=== PATIENT | male | born 1965 | race Caucasian/White ===

== ENCOUNTER → 2022-09-01 | Outpatient (CLI) | payer OTHER | END | disposition home or self-care (01) | LOC: LAB 07:30 → LAB SHORT 07:30 | DX: R10.9 Unspecified abdominal pain (principal) | CPT/HCPCS: 87177; 87209; 87338 ==

== ENCOUNTER 2025-03-09 15:59 | Inpatient (IN) | payer OTHER ==
[2025-03-09] VITALS (7 sets, daily range): BP systolic 122–140; BP diastolic 80–118
[~2025-03-09] VITALS: Ht 190.5 cm; Wt 96.8 kg
[2025-03-09] MEDS ORDERED: Heparin Sodium 1000 Units/ML 10ML MDV ONE ×2 (16:04→17:00)
[2025-03-09] MEDS ORDERED: Verapamil HCL 2.5 MG/ML 2ML Injection ONE (16:04)
[2025-03-09] MEDS ORDERED: NS 250 ML IV ONE (16:05)
[2025-03-09] MEDS ORDERED: Nitroglycerin 2 MG/20 ML BTL ONE (16:05)
[2025-03-09] MEDS ORDERED: NS 1,000 ML IV ONE ×2 (16:05→16:09)
[2025-03-09] MEDS ORDERED: Atropine Sulfate 0.1 MG/ML 10ML SYR ONE ×2 (16:09→17:21)
[2025-03-09] MEDS ORDERED: Midazolam HCl 1MG / ML 2ML Vial ONE (16:09)
[2025-03-09] MEDS ORDERED: Phenylephrine HCl 100 MCG/ML-NS 10MLSYR (1MG/10ML) ONE (16:09)
[2025-03-09] MEDS ORDERED: FentaNYL Citrate 50 MCG/ML 2 ML Injection ONE (16:09)
[2025-03-09] MEDS ORDERED: Tirofiban HCL Monohydrate 3.75 MG/15 ML Vial ONE (16:10)
[2025-03-09] MEDS ORDERED: Heparin Sodium,Porcine 5,000 UNIT/0.5 ML SDV SC ONE (16:58)
[2025-03-09] MEDS ORDERED: Aspirin 81 MG Chew PO ONE (16:58)
[2025-03-09] MEDS ORDERED: Clopidogrel Bisulfate 300 MG TABLET ONE (17:10)
[2025-03-09] MEDS ORDERED: Ipratropium/Albuterol SulF 2.5-0.5MG/3 ML Amp INH SCH (17:50)
[2025-03-09] MEDS ORDERED: MONT10T PO (17:51)
[2025-03-09] MEDS ORDERED: OMEP20ER PO (17:51)
[2025-03-09] MEDS ORDERED: VITAMIN D5000 UNIT PO (17:52)
[2025-03-09] MEDS ORDERED: Norco 7.5-3251 EACH PO (17:52)
[2025-03-09] MEDS ORDERED: Albuterol 2.5 MG/3 ML VIAL INH PRN (17:55)
[2025-03-09] MEDS ORDERED: NS 1,000 ML IV SCH (17:55)
[2025-03-09] MEDS ORDERED: HYDROcodone 5-APAP 325 TAB PO PRN (18:00)
[2025-03-09] MEDS ORDERED: FentaNYL Citrate 50 MCG/ML 2 ML Injection IV PRN (18:00)
[2025-03-09 18:15] LABS: BASOPHILS ABSOLUTE AUTO 0.09 K/mm3 (0.00-0.23); BASOPHILS PERCENT AUTO 0 % (0-2); EOSINOPHILS ABSOLUTE AUTO 0.05 K/mm3 (0.00-0.68); EOSINOPHILS PERCENT AUTO 0 % (0-6); Hematocrit 52.8 % (37.0-53.0); Hemoglobin 18.1 g/dL (13.5-17.5); IMMATURE GRAN ABSOLUTE AUTO 0.19 K/mm3 (0.00-0.10); IMMATURE GRAN PERCENT AUTO 1 % (0-1); LYMPHOCYTES ABSOLUTE AUTO 1.02 K/mm3 (0.84-5.20); LYMPHOCYTES PERCENT AUTO 4 % (21-46); MONOCYTES ABSOLUTE AUTO 1.05 K/mm3 (0.16-1.47); MONOCYTES PERCENT AUTO 4 % (4-13); Mean Corpuscular HGB 31.6 pg (26.0-34.0); Mean Corpuscular HGB Conc 34.3 g/dL (31.5-36.5); Mean Corpuscular Volume 92 fL (80-100); Mean Platelet Volume 10.5 fL (9.1-12.4); NEUTROPHILS ABSOLUTE AUTO 21.67 K/mm3 (1.96-9.15); NEUTROPHILS PERCENT AUTO 90 % (41-73); Platelet Count 237 K/mm3 (150-400); RDW Coefficient Variation 13.3 % (11.7-14.2); RDW Standard Deviation 45.7 fL (35.1-46.3); Red Blood Cell Count 5.72 M/mm3 (4.30-5.90); White Blood Cell Count 24.07 K/mm3 (4.00-11.30)
[2025-03-09] MEDS ORDERED: Amiodarone HCl 50 MG / ML 3 ML Amp IV ONE (18:21)
--- NOTE | 2025-03-09 18:35 | NUR ---
DAY SHIFT SUMMARY PT ARRIVED TO ICU FROM [facility] ALERT AND ORIENTED COMMUNICATING APPROPRIATELY W STAFF. PT REPORTING CONSTANT ACHING IN HIS RCW THAT HE REPORTS IS IMPROVING. PT'S MONITOR SHOWING SR 70'S W OCCASIONAL PVC. PT HAS AMIODARONE GTT AND NS INFUSING PER ORDER. PT'S BP STABLE. PT ARRIVED ON NON-REBREATHER MASK BUT WAS TRANSITIONED TO 12L HI MIRANDA NC. PT'S FAMILY AT BEDSIDE. TR BAND IN PLACE APPEARING C/D/I, WILL BEGIN DEFLATION APPROX 1914. WILL REPORT TO ONCOMING RN.
[2025-03-09 18:45] LABS: Magnesium, Blood 1.9 mg/dL (1.6-2.4)
[2025-03-09 18:51] LABS: Albumin, Blood 3.7 g/dL (3.4-5.0); Albumin/Globulin Ratio 1.3 (0.8-1.8); Bilirubin, Total 0.5 mg/dL (0.1-1.0); Bun/Creatinine Ratio 9.3 (12.0-20.0); Calcium, Blood 8.1 mg/dL (8.5-10.1); Creatinine, Blood 1.07 mg/dL (0.60-1.20); Globulin, Blood 2.8 g/dL (2.2-4.0); Potassium, Blood 3.6 mmol/L (3.5-5.5); Thyroid Stimulating Hormone 1.72 uIU/mL (0.360-4.800); Total Protein, Blood 6.5 g/dL (6.4-8.2)
[2025-03-09 19:08] LABS: Source, Urine Clean Catch
[2025-03-09 19:11] LABS: Appearance, Urine Clear (Clear); Bilirubin, Urine Neg (Neg); Blood, Urine 5+ (Neg); Color, Urine Yellow (P-Yellow); Glucose Qualitative, Urine 1+ (Neg); Ketones, Urine 2+ (Neg); Leukocyte Esterase, Urine Neg (Neg); Nitrite, Urine Neg (Neg); Protein, Urine 2+ (Neg); Specific Gravity, Urine 1.015 (1.003-1.022); Urobilinogen, Urine NORM (Normal)
[2025-03-09 19:23] LABS: Bacteria Rare /hpf; Red Blood Cells, Urine 0-2 /hpf (0-2); Squamous Epithelial Cells Rare /hpf (Few); White Blood Cells, Urine 0-2 /hpf (0-5)
[2025-03-09] MEDS ORDERED: Docusate Sodium/Senna 1 Tab PO SCH (21:00)
[2025-03-09] MEDS ORDERED: Montelukast Sodium 10 MG Tab PO SCH (21:00)
[2025-03-09] MEDS ORDERED: Metoprolol Tartrate 25 MG Tab PO SCH (21:00)
[2025-03-09] MEDS ORDERED: Atorvastatin 40 MG Tab PO SCH (21:00)
--- NOTE | 2025-03-09 21:23 | NUR ---
NURSING NOTE: THIS RN WENT TO GIVE PT NIGHT TIME MEDS TO WHICH PT REFUSED. HE SAID THAT HE TOOK THEM THIS MORNING AND DECLINES TO TAKE ADDITIONAL DOSE. HE ALSO SAID THAT HE DOES NOT KNOW WHAT ATORVASTATIN IS AND WOULD NOT LIKE TO TAKE IT AT THIS TIME. THIS RN EDUCATED PT ON MEDICATION AND PT STILL DECLINED.
[2025-03-10] VITALS (20 sets, daily range): BP systolic 91–168; BP diastolic 66–111
[2025-03-10 03:40] LABS: Anion Gap 8 mmol/L (3-11); Blood Urea Nitrogen 11 mg/dL (8-24); Bun/Creatinine Ratio 10.2 (12.0-20.0); CHOL/HDL RATIO 3.8; CO2, Blood 26 mmol/L (21-32); Calcium, Blood 8.1 mg/dL (8.5-10.1); Chloride, Blood 102 mmol/L (98-108); Cholesterol 212 mg/dL (50-200); Creatinine, Blood 1.08 mg/dL (0.60-1.20); Glomerular Filtration Rate 78 (60-); Glucose, Blood 138 mg/dL (70-99); HDL Cholesterol 56 mg/dL (>39); LDL/HDL RATIO 2.1; Low Density Lipoprotein Chol 120 mg/dL (0-110); Potassium, Blood 3.9 mmol/L (3.5-5.5); Sodium, Blood 132 mmol/L (136-145); Triglycerides 179 mg/dL (30-160); Very Low Density Lipoprot Chol 35 mg/dL (6-32)
[2025-03-10] MEDS ORDERED: Pantoprazole Sodium 40 MG Tab PO SCH (06:00)
[2025-03-10] MEDS ORDERED: Omeprazole 20 MG CapCR PO SCH (06:00)
--- NOTE | 2025-03-10 07:08 | NUR ---
END OF SHIFT: THIS PT HAS SLEPT MOST OF THE NIGHT. HE DID HAVE ABOUT 3 RUNS OF VTACH THAT WERE NOT SYMPTOMATIC THAT LASTED ABOUT 10-15 BEATS EACH. HE HAS BEEN ON 12L OF O2 SATTING 94% AND BETTER. HEART RATE HAS BEEN NORMAL SINUS RHYTHM WITH PVCs. AMIO GTT RUNNING. BLOOD PRESSURES HAVE BEEN WNL. NO OTHER ACUTE EVENTS OVERNIGHT.
[2025-03-10 08:28] LABS: BASOPHILS ABSOLUTE AUTO 0.03 K/mm3 (0.00-0.23); BASOPHILS PERCENT AUTO 0 % (0-2); EOSINOPHILS ABSOLUTE AUTO 0.02 K/mm3 (0.00-0.68); EOSINOPHILS PERCENT AUTO 0 % (0-6); Hematocrit 49.1 % (37.0-53.0); Hemoglobin 17.1 g/dL (13.5-17.5); IMMATURE GRAN ABSOLUTE AUTO 0.03 K/mm3 (0.00-0.10); IMMATURE GRAN PERCENT AUTO 0 % (0-1); LYMPHOCYTES ABSOLUTE AUTO 1.38 K/mm3 (0.84-5.20); LYMPHOCYTES PERCENT AUTO 12 % (21-46); MONOCYTES ABSOLUTE AUTO 0.47 K/mm3 (0.16-1.47); MONOCYTES PERCENT AUTO 4 % (4-13); Mean Corpuscular HGB 31.6 pg (26.0-34.0); Mean Corpuscular HGB Conc 34.8 g/dL (31.5-36.5); Mean Corpuscular Volume 91 fL (80-100); Mean Platelet Volume 10.4 fL (9.1-12.4); NEUTROPHILS PERCENT AUTO 84 % (41-73); Platelet Count 198 K/mm3 (150-400); RDW Coefficient Variation 13.4 % (11.7-14.2); RDW Standard Deviation 45.2 fL (35.1-46.3); Red Blood Cell Count 5.41 M/mm3 (4.30-5.90); White Blood Cell Count 11.83 K/mm3 (4.00-11.30)
[2025-03-10] MEDS ORDERED: Enoxaparin 40 MG/0.4 ML SYR SC SCH (09:00)
[2025-03-10] MEDS ORDERED: Lisinopril 5 MG Tab PO SCH (09:00)
[2025-03-10] MEDS ORDERED: Aspirin 81 MG Chew PO SCH (09:00)
[2025-03-10] MEDS ORDERED: Clopidogrel Bisulfate 75 MG Tab PO SCH (09:00)
[2025-03-10] MEDS ORDERED: Enoxaparin 30 MG/0.3 ML SYR SC SCH (09:00)
--- NOTE | 2025-03-10 10:07 | NUR ---
CARE ASSUMPTION NOTE AFTER REPORT AND UPON ENTERING THE ROOM PATIENT WAS ALERT AND ORIENTED TALKING TO CHARGE NURSE. PT APPEARED TO BE IN NO IMMEDIATE DISTRESS AND VOICED HE WAS "FEELING BETTER". PT'S RIGHT IV SITE WAS LEAKING, CHARGE NURSE REMOVED IV SITE AND I (SISSY, SUSTAINMENT LOGISTICS ANALYST) INSERTED 20G IV IN RIGHT FOREARM TO CONTINUE AMIODARONE DRIP. CHARGE NURSE, WEB COORDINATOR, AND MYSELF ROLLED PATIENT TO REMOVE LINENS THAT WERE WET FOR IV LEAK. PT TOLERATED MOVEMENT WELL AND WAS BOOSTED IN BED WITH HOB ELEVATED. PT COUGHING UP THICK, RED/CLEAR SECRETIONS AT THE TIME WITH A PILLOW PLACED AT CHEST TO HOLD ONTO WHILE COUGHING. MORNING MEDICATIONS GIVEN WITH NO PROBLEMS. LATER IN THE MORNING DR CAMPOS PRESENT AT BEDSIDE WITH PT'S IN THE ROOM. DR CAMPOS WENT OVER THE PLAN OF CARE WITH PT AND FOR PLANS TO STAY IN ICU ANOTHER DAY TO MONITOR. PT AND UNDERSTOOD PLANS FOR CARE.
[2025-03-10] MEDS ORDERED: Furosemide 20 MG Tab PO PRN (12:45)
--- NOTE | 2025-03-10 17:29 | NUR ---
SHIFT SUMMARY NEURO: PT HAS BEEN ALERT AND ORIENTED X4 THROUGHOUT THE SHIFT. HE IS CALM AND COOPERATIVE WITH CARE. HE ANSWERS QUESTIONS APPROPRIATELY, TAKES MEDICATIONS WELL, AND WILL LET HIS NEEDS BE KNOWN. CARDIOVASCULAR: PT ON CONTIOUS TELE AND HAS MAINTAINED SINUS RHYTHM WITH HR BETWEEN 80'S-90'S, PT HAS HAD SEVERAL EPISODES OF VTACH (5-7 BEATS) WITH NO SYMPTOMS DURING EPISODE. PT HAS NOT COMPLAINED OF CHEST PAIN OR PRESSURE THIS SHIFT. RESPIRATORY: PT'S O2 HAS MAINTAINED BETWEEN 88-96% ON 1-4L VIA NC. PT O2 SATS DECREASE <90% BUT >87% DURING AMBULATION TO THE RESTROOM BUT RETURNS BACK WNL AT REST. LUNG SOUNDS HAVE REMAINED THE SAME THROUGHOUT SHIFT. PT CONTINOUS TO PRODUCE THICK RED/CLEAR SPUTUM. GI: PT HAD ONE BOWEL MOVEMENT DURING SHIFT, WITH NO COMPLAINTS OF NAUSEA,VOMITING,DIARRHEA, OR CONSTIPATION. : PT CONTINOUS TO USE URINAL WITH FREQUENT URINATION THROUGHOUT SHIFT. URINE WAS A DARKER YELLOW COLOR THIS MORNING BUT HAS CLEARED TO A YELLOW/CLEAR COLOR TOWARDS THE END OF SHIFT. NO COMPLAINTS OF PAIN OR BURINING WHILE URINATING. SKIN: PT HAS A RED/SMITH HUE THAT APPEARS NORMAL TO BASELINE SKIN TONE. PT'S PCI SITE ON RIGHT WRIST APPEARS WNL WITH NO SIGNS ON INFECTION. PSYCHOSOCIAL: PT'S HAS BEEN AT BEDSIDE THROUGHOUT SHIFT WITH FRIENDS OF THE FAMILY VISITING THROUGHOUT THE DAY. PT HAS TALKED TO OTHER FAMILY MEMBERS ON THE PHONE WELL.
[2025-03-11] VITALS (10 sets, daily range): BP systolic 87–109; BP diastolic 62–72
[2025-03-11 03:29] LABS: BASOPHILS ABSOLUTE AUTO 0.05 K/mm3 (0.00-0.23); BASOPHILS PERCENT AUTO 0 % (0-2); EOSINOPHILS ABSOLUTE AUTO 0.07 K/mm3 (0.00-0.68); EOSINOPHILS PERCENT AUTO 1 % (0-6); Hematocrit 45.3 % (37.0-53.0); Hemoglobin 15.3 g/dL (13.5-17.5); IMMATURE GRAN ABSOLUTE AUTO 0.04 K/mm3 (0.00-0.10); IMMATURE GRAN PERCENT AUTO 0 % (0-1); LYMPHOCYTES ABSOLUTE AUTO 1.73 K/mm3 (0.84-5.20); LYMPHOCYTES PERCENT AUTO 15 % (21-46); MONOCYTES PERCENT AUTO 8 % (4-13); Mean Corpuscular HGB 30.9 pg (26.0-34.0); Mean Corpuscular HGB Conc 33.8 g/dL (31.5-36.5); Mean Corpuscular Volume 92 fL (80-100); Mean Platelet Volume 10.1 fL (9.1-12.4); NEUTROPHILS ABSOLUTE AUTO 8.68 K/mm3 (1.96-9.15); NEUTROPHILS PERCENT AUTO 76 % (41-73); Platelet Count 183 K/mm3 (150-400); RDW Coefficient Variation 13.4 % (11.7-14.2); RDW Standard Deviation 45.9 fL (35.1-46.3); Red Blood Cell Count 4.95 M/mm3 (4.30-5.90); White Blood Cell Count 11.47 K/mm3 (4.00-11.30)
--- NOTE | 2025-03-11 05:45 | NUR ---
SHIFT SUMMERY PT HAS BEEN ALERT AND ORIENTED X4, NIRALI [place]ES. PT ON 2L NC W/OXYGEN SAT >90%. NO COMPLAINTS OF CHEST PAIN/PRESSURE. HAS STAYED AT BEDSIDE ALL NIGHT. PT HAS HAD NO REPORTS OF PAIN/DISCOMFORT. PT HAS BEEN SR ON THE ASSISTANT GM OF CONTENT & DELIVERY, BP WNL. AFEBRILE.
[2025-03-11 08:37] LABS: Bun/Creatinine Ratio 9.1 (12.0-20.0); Calcium, Blood 7.8 mg/dL (8.5-10.1); Creatinine, Blood 1.1 mg/dL (0.60-1.20); Potassium, Blood 3.7 mmol/L (3.5-5.5)
[2025-03-11] MEDS ORDERED: Doxycycline Hyclate 100 MG TAB PO SCH (09:00)
[2025-03-11] MEDS ORDERED: CefTRIAXone Sodium 1,000 MG in NS 100 ML IV SCH (09:00)
[2025-03-11] MEDS ORDERED: PANT40 PO (09:26)
[2025-03-11] MEDS ORDERED: ASPI81CH PO (09:27)
[2025-03-11] MEDS ORDERED: ATOR40TA PO (09:28)
[2025-03-11] MEDS ORDERED: CLOP75 PO (09:28)
[2025-03-11] MEDS ORDERED: DOCUZEN 8.6-501 EACH PO (09:29)
[2025-03-11] MEDS ORDERED: DOXY100 PO (09:29)
[2025-03-11] MEDS ORDERED: METO25 PO (09:30)
[2025-03-11] MEDS ORDERED: Lisinopril2.5 MG PO (09:30)
[2025-03-11] MEDS ORDERED: AMOCLA500 PO (09:32)
[2025-03-11] MEDS ORDERED: ALBU90OI INH (09:32)
[2025-03-11] MEDS ORDERED: CODEINE-GUAIFE120 M1 PO (09:34)
[2025-03-11] MEDS ORDERED: FURO20 PO (09:35)
--- NOTE | 2025-03-11 10:03 | NUR ---
DISCHARGE PT VERBALIZED UNDERSTANDING OF ALL DISCHARGE MEDICATIONS AND INSTRUCTIONS. PT DRESSED SELF. IV DC'D. ALL PT BELONGINGS SENT WITH PT. PT TAKEN TO VEHICLE BY WHEELCHAIR AT 1005.
== END 2025-03-11 10:24 | disposition home or self-care (01) | DRG 321 ==
LOC: ER 15:59 → ICUE 16:30 → ERHOLD 16:30 → ICUE 17:35
PROVIDERS: Internal Medicine; Nurse Practitioner Acute Care; ADMIT Student in an Organized Health Care Education/Training Program
PROC: 027034Z Dilation of Coronary Artery, One Artery with Drug-eluting Intraluminal Device, Percutaneous Approach (ICD-10-PCS; principal; 2025-03-09)
PROC: B2111ZZ Fluoroscopy of Multiple Coronary Arteries using Low Osmolar Contrast (ICD-10-PCS; 2025-03-09)
PROC: 5A2204Z Restoration of Cardiac Rhythm, Single (ICD-10-PCS; 2025-03-09)
DX: I21.09 ST elevation (STEMI) myocardial infarction involving other coronary artery of anterior wall (principal); I49.01 Ventricular fibrillation; J18.9 Pneumonia, unspecified organism; I47.20 Ventricular tachycardia, unspecified; J44.1 Chronic obstructive pulmonary disease with (acute) exacerbation; J44.0 Chronic obstructive pulmonary disease with (acute) lower respiratory infection; G89.29 Other chronic pain; K21.9 Gastro-esophageal reflux disease without esophagitis; I25.5 Ischemic cardiomyopathy; F17.210 Nicotine dependence, cigarettes, uncomplicated; G47.33 Obstructive sleep apnea (adult) (pediatric); I25.10 Atherosclerotic heart disease of native coronary artery without angina pectoris; R09.02 Hypoxemia; Z71.6 Tobacco abuse counseling
CPT/HCPCS: 36415; 71045; 76937; 80048; 80053; 80061; 81001; 83036; 83735; 83880; 84443; 85025; 85347; 93005; 93010; 93454; 94640; 94762; 96374; 99152; 99153; 99285-25; A9270; C1725; C1769; C1874; C1887; C1894; C8929; C9606; J0282; J0461; J0696; J1644; J1650; J2250; J2371; J3010; J3246; J7030; J7050; J7060; Q9957; Q9967